=== PATIENT | male | born 1990 | race Two or more races ===

== ENCOUNTER 2019-03-01 22:29 | Emergency (ER) | payer SELFPAY ==
[~2019-03-01] VITALS: Ht 170.2 cm; Wt 59.0 kg
[2019-03-01 23:13] LABS: Basophils # (auto) 0 uL; Basophils % (auto) 0.4 % (0.0-2.0); Eosinophils # (auto) 0 uL; Eosinophils % (auto) 0.1 % (0.0-7.0); Hematocrit 49.3 % (41.0-53.0); Hemoglobin 16.7 g/dL (13.5-17.5); Lymphocytes % (auto) 26.7 % (10.0-50.0); Mean Corpuscular Hemoglobin 30.8 pg (28.0-32.0); Mean Corpuscular Hgb Conc. 33.8 g/dL (32.0-36.0); Mean Corpuscular Volume 91.2 fL (80.0-100.0); Monocytes # (auto) 1.1 uL; Monocytes % (auto) 10.1 % (0.0-12.0); Neutrophils % (auto) 62.7 % (37.0-80.0); Platelet Count (auto) 329 10^3/uL (140-450); Red Cell Distribution Width 12.8 % (11.8-14.3); White Blood Cell 11.1 10^3/uL (4.4-10.8)
[2019-03-01 23:31] LABS: Albumin 4.7 g/dL (3.4-5.0); Anion Gap 13 (5-15); BUN/Creatinine Ratio 12.4; Blood Alcohol < 3.0 mg/dL (0-5); Blood Urea Nitrogen 14 mg/dL (7-18); Calcium 8.6 mg/dL (8.5-10.1); Carbon Dioxide 22 mmol/L (21-32); Chloride 106 mmol/L (98-107); GFR African American 100 mL/min; GFR Non-African American 83 mL/min; Glucose 128 mg/dL (74-106); Potassium 3.1 mmol/L (3.5-5.1); Sodium 141 mmol/L (136-145)
[2019-03-01 23:36] LABS: Alanine Aminotransferase 41 U/L (16-61); Alkaline Phosphatase 80 U/L (45-117); Aspartate Aminotransferase 14 U/L (15-37); Bilirubin, Total 1.2 mg/dL (0.2-1.0); Total Protein 8.9 g/dL (6.4-8.2)
[2019-03-02 06:10] LABS: Urine WBC None Seen /hpf (0 - 3)
[2019-03-02 06:16] LABS: Urine Bacteria NONE SEEN /hpf (None Seen); Urine Blood Negative /uL (Negative); Urine Specific Gravity 1.006 (1.001-1.035)
[2019-03-02] MEDS ORDERED: SODIUM CHLORIDE 0.9% 1,000 ML IV ONE (07:29)
[2019-03-02] MEDS ORDERED: IBUPROFEN 800 MG TAB PO ONE (07:30)
[2019-03-02] MEDS ORDERED: POTASSIUM EFFERVESENT TAB 25 MEQ PO ONE (07:30)
[2019-03-02] MEDS ORDERED: LORazepam 0.5 MG TAB PO ONE (09:15)
[2019-03-02 09:17] VITALS: BP 106/87
[2019-03-02 11:24] LABS: Alcohol, Urine < 3.0 mg/dL (0-5); Amphetamine Screen, Urine NEGATIVE (NEGATIVE); Barbiturate Scree,Urine NEGATIVE (NEGATIVE); Benzodiazephine Screen, Urine NEGATIVE (NEGATIVE); Cannabinoid Screen, Urine POSITIVE (NEGATIVE); Cocaine Screen, Urine NEGATIVE (NEGATIVE); Opiate Scree,Urine NEGATIVE (NEGATIVE); Phencyclidine Screen, Urine NEGATIVE (NEGATIVE)
== END 2019-03-02 09:30 | disposition home or self-care (01) ==
LOC: ER 22:31
DX: R07.89 Other chest pain (principal); E87.6 Hypokalemia; F12.10 Cannabis abuse, uncomplicated
CPT/HCPCS: 36415; 71046; 80053; 80307; 80320; 81001; 82962; 84484; 85025; 93005; 96360; 99284; J7030

== ENCOUNTER 2019-03-02 23:58 | Emergency (ER) | payer SELFPAY ==
[~2019-03-02] VITALS: Ht 170.2 cm; Wt 59.0 kg
[2019-03-03 00:04] VITALS: BP 133/86
[2019-03-03 00:38] LABS: Basophils # (auto) 0.1 uL; Basophils % (auto) 0.6 % (0.0-2.0); Eosinophils # (auto) 0 uL; Eosinophils % (auto) 0.2 % (0.0-7.0); Hematocrit 44.9 % (41.0-53.0); Hemoglobin 15.5 g/dL (13.5-17.5); Lymphocytes # (auto) 2.7 uL; Lymphocytes % (auto) 26.5 % (10.0-50.0); Mean Corpuscular Hemoglobin 31.5 pg (28.0-32.0); Mean Corpuscular Hgb Conc. 34.6 g/dL (32.0-36.0); Mean Corpuscular Volume 90.9 fL (80.0-100.0); Monocytes # (auto) 0.9 uL; Neutrophils # (auto) 6.4 uL; Neutrophils % (auto) 63.7 % (37.0-80.0); Nucleated Red Blood Cells % 0.1 %; Platelet Count (auto) 294 10^3/uL (140-450); Red Blood Cells 4.94 10^6/uL (4.5-5.90); Red Cell Distribution Width 12.7 % (11.8-14.3); White Blood Cell 10.1 10^3/uL (4.4-10.8)
[2019-03-03 00:51] LABS: INR 1.11 (0.9-1.15); Partial Thromboplastin Time 27.2 sec (23.64-32.05)
[2019-03-03 00:54] LABS: Albumin 4.4 g/dL (3.4-5.0); Anion Gap 13 (5-15); Blood Urea Nitrogen 13 mg/dL (7-18); Calcium 8.7 mg/dL (8.5-10.1); Carbon Dioxide 22 mmol/L (21-32); Chloride 106 mmol/L (98-107); Glucose 90 mg/dL (74-106); Potassium 3.6 mmol/L (3.5-5.1); Sodium 141 mmol/L (136-145)
[2019-03-03 00:56] LABS: Alanine Aminotransferase 38 U/L (16-61); Aspartate Aminotransferase 17 U/L (15-37); BUN/Creatinine Ratio 14.4; GFR African American 130 mL/min; GFR Non-African American 108 mL/min
[2019-03-03 00:59] LABS: Alkaline Phosphatase 75 U/L (45-117); Bilirubin, Total 1.6 mg/dL (0.2-1.0); Total Protein 8.1 g/dL (6.4-8.2)
== END 2019-03-03 06:16 | disposition left against medical advice (07) ==
LOC: ER 03-03 00:02 → MERGE 03-03 00:02 → ER 03-03 06:16
DX: R07.89 Other chest pain (principal); R51 Headache
CPT/HCPCS: 36415; 80053; 84484; 85025; 85610; 85730; 93005

== ENCOUNTER 2019-03-03 16:57 | Emergency (ER) | payer MEDICAID ==
[~2019-03-03] VITALS: Ht 170.2 cm; Wt 59.0 kg
[2019-03-03 17:59] LABS: Basophils # (auto) 0.1 uL; Basophils % (auto) 0.6 % (0.0-2.0); Eosinophils # (auto) 0 uL; Eosinophils % (auto) 0.1 % (0.0-7.0); Hematocrit 45.3 % (41.0-53.0); Hemoglobin 15.8 g/dL (13.5-17.5); Lymphocytes # (auto) 2.3 uL; Lymphocytes % (auto) 23.7 % (10.0-50.0); Mean Corpuscular Hemoglobin 31.6 pg (28.0-32.0); Mean Corpuscular Hgb Conc. 34.9 g/dL (32.0-36.0); Mean Corpuscular Volume 90.6 fL (80.0-100.0); Monocytes # (auto) 0.7 uL; Monocytes % (auto) 7.6 % (0.0-12.0); Neutrophils # (auto) 6.6 uL; Nucleated Red Blood Cells % 0.1 %; Platelet Count (auto) 302 10^3/uL (140-450); Red Cell Distribution Width 12.6 % (11.8-14.3); White Blood Cell 9.7 10^3/uL (4.4-10.8)
[2019-03-03] MEDS ORDERED: ASPirin 81 mg TAB PO ONE (18:00)
[2019-03-03] MEDS ORDERED: NITROGLYCERIN 0.4 MG SL TAB SL ONE (18:00)
[2019-03-03 18:14] LABS: INR 1.09 (0.9-1.15); Partial Thromboplastin Time 27.3 sec (23.64-32.05)
[2019-03-03 18:17] LABS: Alanine Aminotransferase 36 U/L (16-61); Albumin 4.6 g/dL (3.4-5.0); Anion Gap 13 (5-15); Aspartate Aminotransferase 17 U/L (15-37); BUN/Creatinine Ratio 12.5; Blood Urea Nitrogen 11 mg/dL (7-18); Calcium 8.8 mg/dL (8.5-10.1); Carbon Dioxide 22 mmol/L (21-32); Chloride 103 mmol/L (98-107); GFR African American 134 mL/min; GFR Non-African American 110 mL/min; Glucose 90 mg/dL (74-106); Magnesium 2.3 mg/dL (1.6-2.6); Potassium 3.3 mmol/L (3.5-5.1); Sodium 138 mmol/L (136-145)
[2019-03-03 18:21] LABS: Alkaline Phosphatase 74 U/L (45-117); Bilirubin, Total 1.2 mg/dL (0.2-1.0); Total Protein 8.1 g/dL (6.4-8.2)
[2019-03-03 20:10] VITALS: BP 139/86
== END 2019-03-03 20:12 | disposition home or self-care (01) ==
LOC: ER 16:57 → EDBD 16:57 → MERGE 16:57 → EDUNIT# 16:57 → ER 20:12
DX: R07.89 Other chest pain (principal); F41.9 Anxiety disorder, unspecified
CPT/HCPCS: 36415; 80053; 83735; 83880; 84484; 85025; 85610; 85730; 93005; 94761

== ENCOUNTER 2019-03-05 10:32 | Emergency (ER) | payer SELFPAY ==
[~2019-03-05] VITALS: Ht 172.7 cm; Wt 81.6 kg
[2019-03-05 11:30] VITALS: BP 137/87
== END 2019-03-05 12:04 | disposition home or self-care (01) ==
LOC: EDBD 10:32 → ER 10:40
DX: R07.89 Other chest pain (principal)
CPT/HCPCS: 71046; 93005

== ENCOUNTER 2019-03-08 11:16 | Emergency (ER) | payer MEDICAID, OTHER ==
[~2019-03-08] VITALS: Ht 165.1 cm; Wt 72.6 kg
[2019-03-08 11:53] LABS: Basophils # (auto) 0.1 uL; Basophils % (auto) 0.8 % (0.0-2.0); Eosinophils # (auto) 0 uL; Eosinophils % (auto) 0.4 % (0.0-7.0); Hematocrit 43.4 % (41.0-53.0); Hemoglobin 14.9 g/dL (13.5-17.5); Lymphocytes % (auto) 25.9 % (10.0-50.0); Mean Corpuscular Hemoglobin 31.1 pg (28.0-32.0); Mean Corpuscular Hgb Conc. 34.3 g/dL (32.0-36.0); Mean Corpuscular Volume 90.5 fL (80.0-100.0); Monocytes # (auto) 0.8 uL; Monocytes % (auto) 10.7 % (0.0-12.0); Neutrophils # (auto) 4.7 uL; Neutrophils % (auto) 62.2 % (37.0-80.0); Nucleated Red Blood Cells % 0.1 %; Platelet Count (auto) 292 10^3/uL (140-450); Red Blood Cells 4.79 10^6/uL (4.5-5.90); Red Cell Distribution Width 12.9 % (11.8-14.3); White Blood Cell 7.6 10^3/uL (4.4-10.8)
[2019-03-08 12:13] LABS: Albumin 4.2 g/dL (3.4-5.0); Anion Gap 8 (5-15); Blood Urea Nitrogen 4 mg/dL (7-18); Calcium 9.2 mg/dL (8.5-10.1); Carbon Dioxide 26 mmol/L (21-32); Chloride 98 mmol/L (98-107); Glucose 135 mg/dL (74-106); Sodium 132 mmol/L (136-145)
[2019-03-08 12:20] LABS: Alanine Aminotransferase 43 U/L (16-61); Alkaline Phosphatase 67 U/L (45-117); Aspartate Aminotransferase 20 U/L (15-37); BUN/Creatinine Ratio 4.4; Bilirubin, Total 1.2 mg/dL (0.2-1.0); GFR African American 130 mL/min; GFR Non-African American 108 mL/min; Total Protein 7.8 g/dL (6.4-8.2)
[2019-03-08 12:21] LABS: Potassium 2.8 mmol/L (3.5-5.1)
[2019-03-08] MEDS ORDERED: ASPirin 81 mg TAB ONE (13:41)
[2019-03-08] MEDS ORDERED: POTASSIUM CHL 20 Meq TABLET PO ONE ×2 (13:45)
[2019-03-08] MEDS ORDERED: ASPirin 81 mg TAB PO ONE (13:45)
[2019-03-08 13:50] LABS: INR 1.06 (0.9-1.15); Partial Thromboplastin Time 27.6 sec (23.64-32.05)
[2019-03-08 14:23] VITALS: BP 143/92
[2019-03-08 14:33] LABS: Urine Bacteria NONE SEEN /hpf (None Seen); Urine Blood Negative /uL (Negative); Urine WBC <1 /hpf (0 - 3)
[2019-03-08 14:56] LABS: Alcohol, Urine < 3.0 mg/dL (0-5); Amphetamine Screen, Urine NEGATIVE (NEGATIVE); Barbiturate Scree,Urine NEGATIVE (NEGATIVE); Benzodiazephine Screen, Urine NEGATIVE (NEGATIVE); Cannabinoid Screen, Urine NEGATIVE (NEGATIVE); Cocaine Screen, Urine NEGATIVE (NEGATIVE); Opiate Scree,Urine NEGATIVE (NEGATIVE); Phencyclidine Screen, Urine NEGATIVE (NEGATIVE)
== END 2019-03-08 16:45 | disposition home or self-care (01) ==
LOC: ER 11:16 → EDBD 11:16 → ER 16:45
DX: R07.89 Other chest pain (principal); E87.6 Hypokalemia; F12.10 Cannabis abuse, uncomplicated
CPT/HCPCS: 36415; 71046; 80053; 80307; 81001; 83735; 84132; 84484; 85025; 85379; 85610; 85730; 93005; 94761; 99284; J7030

== ENCOUNTER 2019-03-09 08:09 | Emergency (ER) | payer MEDICAID ==
[~2019-03-09] VITALS: Ht 165.1 cm; Wt 77.1 kg
[2019-03-09] MEDS ORDERED: LORazepam 0.5 MG TAB PO ONE (08:30)
[2019-03-09] MEDS ORDERED: ASPirin 81 mg TAB PO ONE (08:30)
[2019-03-09 10:30] VITALS: BP 133/87
== END 2019-03-09 11:32 | disposition home or self-care (01) ==
LOC: EDBD 08:09 → ER 08:09
DX: R07.89 Other chest pain (principal); F41.9 Anxiety disorder, unspecified; F12.10 Cannabis abuse, uncomplicated
CPT/HCPCS: 36415; 84484; 93005

== ENCOUNTER 2019-03-11 16:43 | Emergency (ER) | payer MEDICAID, OTHER ==
[~2019-03-11] VITALS: Ht 170.2 cm; Wt 59.0 kg
[2019-03-11 19:17] LABS: Basophils # (auto) 0 uL; Basophils % (auto) 0.4 % (0.0-2.0); Eosinophils # (auto) 0 uL; Eosinophils % (auto) 0.3 % (0.0-7.0); Hematocrit 40.7 % (41.0-53.0); Hemoglobin 14.2 g/dL (13.5-17.5); Lymphocytes # (auto) 2.1 uL; Lymphocytes % (auto) 21.2 % (10.0-50.0); Mean Corpuscular Hemoglobin 31.4 pg (28.0-32.0); Mean Corpuscular Volume 89.8 fL (80.0-100.0); Monocytes # (auto) 0.8 uL; Monocytes % (auto) 8.7 % (0.0-12.0); Neutrophils # (auto) 6.8 uL; Neutrophils % (auto) 69.4 % (37.0-80.0); Nucleated Red Blood Cells % 0.1 %; Platelet Count (auto) 292 10^3/uL (140-450); Red Blood Cells 4.53 10^6/uL (4.5-5.90); Red Cell Distribution Width 12.9 % (11.8-14.3); White Blood Cell 9.8 10^3/uL (4.4-10.8)
[2019-03-11 19:31] LABS: Albumin 4.5 g/dL (3.4-5.0); Anion Gap 9 (5-15); Blood Urea Nitrogen 2 mg/dL (7-18); Calcium 8.9 mg/dL (8.5-10.1); Carbon Dioxide 26 mmol/L (21-32); Chloride 95 mmol/L (98-107); Glucose 108 mg/dL (74-106); Magnesium 2.2 mg/dL (1.6-2.6); Sodium 130 mmol/L (136-145)
[2019-03-11 19:37] LABS: Alanine Aminotransferase 34 U/L (16-61); Alkaline Phosphatase 68 U/L (45-117); Aspartate Aminotransferase 23 U/L (15-37); BUN/Creatinine Ratio 2.6; Bilirubin, Total 1.2 mg/dL (0.2-1.0); GFR African American 154 mL/min; GFR Non-African American 127 mL/min
[2019-03-11 19:42] LABS: Potassium 2.9 mmol/L (3.5-5.1)
[2019-03-11 20:21] LABS: Urine WBC None Seen /hpf (0 - 3)
[2019-03-11 20:30] LABS: Urine Bacteria NONE SEEN /hpf (None Seen); Urine Blood Negative /uL (Negative)
[2019-03-11 20:43] LABS: Alcohol, Urine < 3.0 mg/dL (0-5); Amphetamine Screen, Urine NEGATIVE (NEGATIVE); Barbiturate Scree,Urine NEGATIVE (NEGATIVE); Benzodiazephine Screen, Urine NEGATIVE (NEGATIVE); Cannabinoid Screen, Urine NEGATIVE (NEGATIVE); Cocaine Screen, Urine NEGATIVE (NEGATIVE); Opiate Scree,Urine NEGATIVE (NEGATIVE); Phencyclidine Screen, Urine NEGATIVE (NEGATIVE)
[2019-03-12] MEDS ORDERED: POTASSIUM EFFERVESENT TAB 25 MEQ PO ONE (02:30)
[2019-03-12 04:00] VITALS: BP 124/62
== END 2019-03-12 04:23 | disposition home or self-care (01) ==
LOC: ER 16:46
DX: F41.1 Generalized anxiety disorder (principal); F12.10 Cannabis abuse, uncomplicated
CPT/HCPCS: 36415; 80053; 80307; 81001; 82962; 83735; 84484; 85025; 93005

== ENCOUNTER 2020-08-22 18:01 | Emergency (ER) | payer MEDICAID ==
[~2020-08-22] VITALS: Ht 170.2 cm; Wt 63.5 kg
[2020-08-22 18:20] VITALS: BP 135/78
== END 2020-08-22 19:25 | disposition left against medical advice (07) ==
LOC: EDUNIT# 18:01 → EDBD 18:01 → ER 18:06
DX: R42 Dizziness and giddiness (principal); M54.5 Low back pain; R53.83 Other fatigue
CPT/HCPCS: 99283; J7030; A4565

== ENCOUNTER 2020-08-25 14:45 | Emergency (ER) | payer MEDICAID ==
[~2020-08-25] VITALS: Ht 175.3 cm; Wt 86.2 kg
[2020-08-25 14:53] VITALS: BP 132/51
== END 2020-08-25 17:15 | disposition home or self-care (01) ==
LOC: EDBD 14:45 → ER 14:45 → EDUNIT# 14:45 → ER 17:15
DX: R07.89 Other chest pain (principal); F41.9 Anxiety disorder, unspecified; F12.10 Cannabis abuse, uncomplicated
CPT/HCPCS: 93005

== ENCOUNTER 2021-07-29 11:44 | Emergency (ER) | payer MEDICAID ==
[~2021-07-29] VITALS: Ht 177.8 cm; Wt 90.7 kg
[2021-07-29 11:48] VITALS: BP 154/89
[2021-07-29 13:49] LABS: Basophils # (auto) 0.1 10 ^3/uL (0-0.2); Basophils % (auto) 0.6 % (0.0-2.0); Eosinophils # (auto) 0 10 ^3/uL (0-0.8); Eosinophils % (auto) 0.1 % (0.0-7.0); Hematocrit 45.8 % (41.0-53.0); Hemoglobin 15.7 g/dL (13.5-17.5); Lymphocytes # (auto) 2.3 10 ^3/uL (0.4-5.4); Lymphocytes % (auto) 23.6 % (10.0-50.0); Mean Corpuscular Hemoglobin 30.9 pg (28.0-32.0); Mean Corpuscular Hgb Conc. 34.4 g/dL (32.0-36.0); Mean Corpuscular Volume 89.9 fL (80.0-100.0); Monocytes # (auto) 0.8 10 ^3/uL (0-1.3); Monocytes % (auto) 7.9 % (0.0-12.0); Neutrophils # (auto) 6.5 10 ^3/uL (1.6-8.6); Neutrophils % (auto) 67.8 % (37.0-80.0); Red Blood Cells 5.09 10^6/uL (4.5-5.90); Red Cell Distribution Width 12.7 % (11.8-14.3); White Blood Cell 9.6 10^3/uL (4.4-10.8)
[2021-07-29 14:04] LABS: BUN/Creatinine Ratio 16.7; Calcium 9.6 mg/dL (8.5-10.1); Potassium 4.2 mmol/L (3.5-5.1)
== END 2021-07-29 18:55 | disposition home or self-care (01) ==
LOC: EDBD 11:44 → ER 11:44 → EDUNIT# 11:44 → ER 18:55
DX: F41.9 Anxiety disorder, unspecified (principal)
CPT/HCPCS: 36415; 71046; 80048; 85025; 93005

== ENCOUNTER 2021-09-05 22:49 | Emergency (ER) | payer MEDICAID ==
[~2021-09-05] VITALS: Ht 167.6 cm; Wt 63.5 kg
[~2021-09-05 22:49] MED LIST: HYDR50CA PO
[2021-09-05 23:00] VITALS: BP 134/84
== END 2021-09-06 07:55 | disposition left against medical advice (07) ==
LOC: EDBD 22:49 → ER 22:49
DX: R31.9 Hematuria, unspecified (principal); Z53.21 Procedure and treatment not carried out due to patient leaving prior to being seen by health care provider

== ENCOUNTER 2021-10-16 04:08 | Emergency (ER) | payer MEDICAID ==
[~2021-10-16] VITALS: Ht 170.2 cm; Wt 72.6 kg
[2021-10-16 06:11] LABS: Urine WBC None Seen /hpf (0 - 3)
[2021-10-16 06:54] LABS: Urine Bacteria NONE SEEN /hpf (None Seen); Urine Blood Negative /uL (Negative); Urine Specific Gravity 1.002 (1.001-1.035)
[2021-10-16 07:40] VITALS: BP 145/96
== END 2021-10-16 07:52 | disposition home or self-care (01) ==
LOC: EDBD 04:08 → ER 04:08
DX: R31.9 Hematuria, unspecified (principal); Z79.899 Other long term (current) drug therapy
CPT/HCPCS: 81001